=== PATIENT | female | born 1950 | race Caucasian/White ===

== ENCOUNTER 2017-08-28 12:27 | Emergency (ER) | payer BC ==
[2017-08-28 12:55] VITALS: BP 135/79
--- NOTE | 2017-08-28 13:00 | UC ---
Throat Pain/Nasal Eddie HPI - HPI Summary HPI Summary: Pt presents with sinus symptoms. She tells me that for the past 7-10 days she has had sinus pain/pressure/congestion worse on the right frontal > left. She denies fever, chills, dizziness, ST, SOB, cough, chest pain, abdominal pain, N/V /D/C. She has been taking suafed OTC without relief. 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; breast lump - Family History Known Family History: Positive: None Family History: no known cardiovascular issues in family lineage - Social History Occupation: Retired Lives: With Family Alcohol Use: None Substance Use Type: None Smoking Status (MU): Never Smoked Tobacco Review of Systems Constitutional: Negative Skin: Negative Eyes: Negative ENT: Sinus Congestion, Sinus Pain/Tenderness Respiratory: Negative Cardiovascular: Negative Gastrointestinal: Negative Neurological: Negative Psychological: Negative All Other Systems Reviewed And Are Negative: Yes Physical Exam Triage Information Reviewed: Yes Appearance: Well-Appearing, Well-Nourished Vital Signs: Initial Vital Signs Temp 97.7 F 08/28/17 12:52 Pulse 68 08/28/17 12:52 Resp 18 08/28/17 12:52 BP 135/79 08/28/17 12:52 Pulse Ox 99 08/28/17 12:52 Vital Signs Reviewed: Yes ENT: Positive: Hearing grossly normal, Pharynx normal, Nasal congestion, TMs normal, Sinus tenderness, Uvula midline. Negative: Pharyngeal erythema, Nasal drainage, TM bulging, TM dull, TM red, Tonsillar swelling, Tonsillar exudate Neck: Positive: Supple, Nontender, No Lymphadenopathy Respiratory: Positive: Chest non-tender, Lungs clear, Normal breath sounds, No respiratory distress, No accessory muscle use Cardiovascular: Positive: RRR, No Murmur, Pulses Normal Neurological: Positive: Alert Psychological: Positive: Age Appropriate Behavior Skin: Negative: rashes Throat Pain/Nasal Course/Dx - Course Course Of Treatment: Sinsuitis - Augmentin 10 days - Differential Dx/Diagnosis Differential Diagnosis/HQI/PQRI: Otitis Media, Sinusitis, URI Provider Diagnoses: Sinusitis Discharge - Discharge Plan Condition: Stable Disposition: HOME Prescriptions: Amoxicillin/Clavulanate TAB* [Augmentin TAB 875*] 875 mg PO BID #20 tab Patient Education Materials: Sinusitis (ED) Referrals: Bere Shook NP [Primary Care Provider] - Additional Instructions: If you develop a fever, SOB, chest pain, new or worsening symptoms - please call your PCP or go to the ED. Your blood pressure was high at todays visit. Please see your primary provider within 4 weeks for recheck and re-evaluation. 1) May try OTC plain Mucinex twice a day in addition to antibiotic 2) Rest and drink plenty of water!
== END 2017-08-28 13:30 | disposition home or self-care (01) ==
LOC: UCEAST 12:27
DX: J32.9 Chronic sinusitis, unspecified (principal)
CPT/HCPCS: 99212; G0463

== ENCOUNTER 2017-09-08 15:30 | Emergency (ER) | payer SELFPAY ==
[2017-09-08 16:04] VITALS: BP 123/76
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
--- NOTE | 2017-09-08 16:50 | RAD ---
INDICATION: Neck pain COMPARISON: None TECHNIQUE: Routine five-view imaging was performed FINDINGS: Bones: There are no acute bony findings. There are arthritic changes at C5-C6 with disc space narrowing and mild uncinate process spurring. Craniocervical junction: The odontoid and atlantodental interval are normal. Alignment: Normal Disc spaces: The remaining disc spaces are well-maintained Soft tissues: The prevertebral soft tissues are normal. IMPRESSION: MILD/MODERATE DEGENERATIVE DISEASE C5-C6.
== END 2017-09-08 17:21 | disposition left against medical advice (07) ==
LOC: UCEAST 15:30
DX: S16.1XXA Strain of muscle, fascia and tendon at neck level, initial encounter (principal); M50.322 Other cervical disc degeneration at C5-C6 level; I10 Essential (primary) hypertension; Z88.5 Allergy status to narcotic agent; Z88.1 Allergy status to other antibiotic agents; V43.52XA Car driver injured in collision with other type car in traffic accident, initial encounter; Y92.9 Unspecified place or not applicable
CPT/HCPCS: 72050; 99212; G0463

== ENCOUNTER 2018-08-19 07:31 | Emergency (ER) | payer BC ==
[2018-08-19 07:42] VITALS: BP 131/97
--- NOTE | 2018-08-19 07:55 | UC ---
Throat Pain/Nasal Eddie HPI - HPI Summary HPI Summary: 68 year old female here with complaint of sinus congestion and heaviness for the past few weeks. Reports she had URI symptoms about a month ago with fever and runny nose. Now feels congested with productive phlegm. No chest pain or sob. No other complaints. - History of Current Complaint Chief Complaint: UCGeneralIllness Stated Complaint: FLU-LIKE SYMPTOMS Time Seen by Provider: 08/19/18 07:36 Hx Obtained From: Patient Onset/Duration: Gradual Onset Severity: Mild Pain Intensity: 7 Cough: Productive Associated Signs & Symptoms: Positive: Negative - Epiglottits Risk Factors Epiglottis Risk Factors: Negative - Allergies/Home Medications Allergies/Adverse Reactions: Allergies Allergy/AdvReac Type Severity Reaction Status Date / Time erythromycin base Allergy Rash Verified 08/19/18 07:42 iohexol [From Omnipaque] Allergy See Comment Verified 08/19/18 07:42 codeine AdvReac Nausea And Verified 08/19/18 07:42 Vomiting mri contrast Allergy Dizziness Uncoded 08/19/18 07:42 PMH/Surg Hx/FS Hx/Imm Hx Previously Healthy: Yes - Surgical History Surgical History: Yes Surgery Procedure, Year, and Place: 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; breast lumpectomy 2009 - Family History Known Family History: Positive: None Family History: no known cardiovascular issues in family lineage - Social History Alcohol Use: None Substance Use Type: None Smoking Status (MU): Never Smoked Tobacco Review of Systems All Other Systems Reviewed And Are Negative: Yes Constitutional: Positive: Negative Skin: Positive: Negative Eyes: Positive: Negative ENT: Positive: Negative, Sinus Congestion, Sinus Pain/Tenderness Respiratory: Positive: Cough Cardiovascular: Positive: Negative Gastrointestinal: Positive: Negative Genitourinary: Positive: Negative Motor: Positive: Negative Neurovascular: Positive: Negative Musculoskeletal: Positive: Negative Neurological: Positive: Negative Psychological: Positive: Negative Is Patient Immunocompromised?: No Physical Exam Triage Information Reviewed: Yes Appearance: Well-Appearing, No Pain Distress, Well-Nourished Vital Signs: Initial Vital Signs Temp 36.8 C 08/19/18 07:36 Pulse 85 08/19/18 07:36 Resp 16 08/19/18 07:36 BP 131/97 08/19/18 07:36 Pulse Ox 99 08/19/18 07:36 Eye Exam: Normal ENT: Positive: Nasal congestion, Nasal drainage, Sinus tenderness. Negative: Tonsillar swelling, Tonsillar exudate Respiratory Exam: Normal Cardiovascular Exam: Normal Abdominal Exam: Normal Bowel Sounds: Positive: Present Musculoskeletal Exam: Normal Musculoskeletal: Positive: No Edema Psychological Exam: Normal Skin Exam: Normal Throat Pain/Nasal Course/Dx - Differential Dx/Diagnosis Differential Diagnosis/HQI/PQRI: Influenza, Sinusitis, URI Provider Diagnosis: Sinusitis Discharge - Sign-Out/Discharge Documenting (check all that apply): Patient Departure All imaging exams completed and their final reports reviewed: Yes - Discharge Plan Condition: Good Disposition: HOME Prescriptions: Amoxicillin/Clavulanate TAB* [Augmentin TAB 875*] 875 mg PO BID #20 tab Patient Education Materials: Sinusitis (ED) Referrals: Bere Shook NP [Primary Care Provider] - - Billing Disposition and Condition Condition: GOOD Disposition: Home
== END 2018-08-19 08:00 | disposition home or self-care (01) ==
LOC: UCEAST 07:31
DX: J32.9 Chronic sinusitis, unspecified (principal); Z88.5 Allergy status to narcotic agent; Z88.1 Allergy status to other antibiotic agents; Z91.041 Radiographic dye allergy status
CPT/HCPCS: 99212; G0463

== ENCOUNTER 2019-01-14 14:15 | Emergency (ER) | payer BC ==
[2019-01-14 14:28] VITALS: BP 151/94
--- NOTE | 2019-01-14 14:49 | UC ---
Throat Pain/Nasal Eddie HPI - HPI Summary HPI Summary: pateint has had increased sinus congestion , pressure above the right eye, sore thrato and now wheezing - History of Current Complaint Chief Complaint: UCGeneralIllness Stated Complaint: SINUS/HEAD CONGESTION Time Seen by Provider: 01/14/19 14:39 Hx Obtained From: Patient ?: No Onset/Duration: Sudden Onset, Lasting Days Severity: Moderate Pain Intensity: 8 Associated Signs & Symptoms: Positive: Dysphagia, Wheezing, Sinus Discomfort, Nasal Discharge - Allergies/Home Medications Allergies/Adverse Reactions: Allergies Allergy/AdvReac Type Severity Reaction Status Date / Time erythromycin base Allergy Rash Verified 01/14/19 14:28 iohexol [From Omnipaque] Allergy See Comment Verified 01/14/19 14:28 amoxicillin [From Augmentin] AdvReac Diarrhea Verified 01/14/19 14:28 clavulanic acid AdvReac Diarrhea Verified 01/14/19 14:28 [From Augmentin] codeine AdvReac Nausea And Verified 01/14/19 14:28 Vomiting mri contrast Allergy Dizziness Uncoded 01/14/19 14:28 Home Medications: Home Medications Aspirin/Acetaminophen/Caffeine [Excedrin Migraine Caplet] 1 each PO 01/14/19 [ History] Diphenhydra/Phenyleph/Acetamin [Cold & Flu Relief Multi-S 12.5-5-325 mg/10Ml] 1 liq PO 01/14/19 [History] PMH/Surg Hx/FS Hx/Imm Hx Previously Healthy: Yes - Surgical History Surgical History: Yes Surgery Procedure, Year, and Place: 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; R breast lumpectomy 2009 - Family History Known Family History: Positive: None Family History: no known cardiovascular issues in family lineage - Social History Alcohol Use: None Substance Use Type: None Smoking Status (MU): Never Smoked Tobacco Review of Systems All Other Systems Reviewed And Are Negative: Yes ENT: Positive: Sore Throat, Ear Ache, Nasal Discharge, Sinus Congestion Respiratory: Positive: Cough Neurological: Positive: Headache Physical Exam Triage Information Reviewed: Yes Appearance: Well-Nourished, Ill-Appearing, Pain Distress Vital Signs: Initial Vital Signs Temp 99.3 F 01/14/19 14:23 Pulse 77 01/14/19 14:23 Resp 16 01/14/19 14:23 BP 151/94 01/14/19 14:23 Pulse Ox 99 01/14/19 14:23 Vital Signs Reviewed: Yes Eye Exam: Normal ENT: Positive: Pharyngeal erythema, Nasal congestion, Nasal drainage, TM bulging - bilateral, Sinus tenderness Dental Exam: Normal Neck exam: Normal Respiratory Exam: Normal Respiratory: Positive: Chest non-tender, No respiratory distress, No accessory muscle use, Wheezing, Inspiration Cardiovascular Exam: Normal Cardiovascular: Positive: RRR Abdominal Exam: Normal Bowel Sounds: Positive: Present Musculoskeletal Exam: Normal Neurological Exam: Normal Skin Exam: Normal Throat Pain/Nasal Course/Dx - Course Course Of Treatment: hx obtained, exam performed ,meds reviewed, treaed for sinusitis - Differential Dx/Diagnosis Differential Diagnosis/HQI/PQRI: Influenza, Pharyngitis, Sinusitis, URI Provider Diagnosis: Sinusitis, Wheezing Discharge - Sign-Out/Discharge Documenting (check all that apply): Patient Departure All imaging exams completed and their final reports reviewed: No Studies - Discharge Plan Condition: Stable Disposition: HOME Prescriptions: Cephalexin CAP* [Keflex CAP*] 500 mg PO QID #20 cap predniSONE [Prednisone 20 MG TAB] 40 mg PO DAILY #10 tablet Patient Education Materials: Sinusitis (ED) Referrals: Bere Shook NP [Primary Care Provider] - Additional Instructions: 1. take the medication as prescribed. 2. Increase fluid intake and get rest 3. Take tylenol as needed for pain. - Billing Disposition and Condition Condition: STABLE Disposition: Home
== END 2019-01-14 14:55 | disposition home or self-care (01) ==
LOC: UCEAST 14:15
DX: J32.9 Chronic sinusitis, unspecified (principal); R06.2 Wheezing; J02.9 Acute pharyngitis, unspecified; H73.893 Other specified disorders of tympanic membrane, bilateral; Z88.1 Allergy status to other antibiotic agents; Z88.8 Allergy status to other drugs, medicaments and biological substances; Z88.0 Allergy status to penicillin; Z88.5 Allergy status to narcotic agent; Z91.041 Radiographic dye allergy status; Z79.82 Long term (current) use of aspirin
CPT/HCPCS: 99212; G0463